=== PATIENT | male | born 1985 | race Hispanic/Latino ===

== ENCOUNTER 2019-12-20 23:23 | Emergency (ER) | payer SELFPAY ==
[2019-12-21] MEDS ORDERED: MORPHINE 4 MG/ML SYR ONE (00:17)
--- NOTE | 2019-12-21 01:54 | ER ---
Nurse's Notes [facility] Name: Sunday Ahn Age: 34 yrs Sex: Male : 1985 Arrival Date: 12/20/2019 Time: 23:25 Bed 6 Private MD: Diagnosis: Right Acromioclavicular Joint Seperation Presentation: 12/19 23:37 Chief complaint: Patient states: Pt reports he was driving home from out of town and ea fell at a gas station and landed on his right shoulder. Pt reports it happened about two hours ago and it feels like his shoulder is out of place. Pt reports taking 1 gram of Tylenol. Coronavirus screen: At this time, the client does not indicate any symptoms associated with coronavirus-19. Ebola Screen: No symptoms or risks identified at this time. Initial Sepsis Screen: Does the patient meet any 2 criteria?. Risk Assessment: Do you want to hurt yourself or someone else? Patient reports no desire to harm self or others. Onset of symptoms was December 20, 2019. 23:37 Method Of Arrival: Ambulatory ea 23:37 Acuity: [place] 3 ea 23:43 Initial Sepsis Screen: Does the patient have a suspected source of infection? No. ea Patient's initial sepsis screen is negative. Historical: - Allergies: 23:44 No Known Allergies; ea - Home Meds: 23:44 None [Active]; ea - PMHx: 23:44 None; ea - PSHx: 23:44 None; ea - Immunization history:: Adult Immunizations up to date. - Social history:: Smoking status: Patient reports the use of cigarette tobacco products, denies chronic smoking, but will smoke occasionally, Patient uses alcohol, occasionally. Screenin:38 Abuse screen: Denies threats or abuse. Nutritional screening: No deficits noted. ea Tuberculosis screening: No symptoms or risk factors identified. Fall Risk None identified. Assessment: 23:44 General: Appears uncomfortable, Behavior is appropriate for age. Pain: Complains of ea pain in anterior aspect of right shoulder and posterior aspect of right shoulder. Neuro: Level of Consciousness is awake, alert, obeys commands, Oriented to person, place, time, situation. Cardiovascular: Patient's skin is warm and dry. Respiratory: Airway is patent Respiratory effort is even, unlabored, Respiratory pattern is regular, symmetrical. Derm: Skin is pink, warm \T\ dry. Musculoskeletal: Range of motion: limited in right shoulder Reports pain in right shoulder. 12/20 00:55 Reassessment: Patient and/or family updated on plan of care and expected duration. Pain ea level reassessed. Patient is alert, oriented x 3, equal unlabored respirations, skin warm/dry/pink. 02:00 Reassessment: Patient and/or family updated on plan of care and expected duration. Pain ea level reassessed. Patient is alert, oriented x 3, equal unlabored respirations, skin warm/dry/pink. Discharge instruction given to patient, verbalized the understanding of instruction. Pt left ED ambulatory tolerating well. 02:02 Reassessment: Patient and/or family updated on plan of care and expected duration. Pain ea level reassessed. Patient is alert, oriented x 3, equal unlabored respirations, skin warm/dry/pink. Discharge instruction given to patient, verbalized the understanding of instruction. Pt left ED ambulatory accompanied by family. Vital Signs: 12/19 23:43 BP 137 / 95; Pulse 74; Resp 18; Temp 99.1; Pulse Ox 98% ; Weight 65.77 kg; Height 5 ft. ea 7 in. (170.18 cm); Pain 8/10; 12/20 01:29 BP 128 / 87; Pulse 70; Resp 18; Pulse Ox 98% on R/A; ea 12/19 23:43 Body Mass Index 22.71 (65.77 kg, 170.18 cm) ea ED Course: 12/19 23:25 Patient arrived in ED. am2 23:38 Triage completed. ea 23:39 Malorie Ga, RN is Primary Nurse. ea 23:43 Arm band placed on right wrist. Patient placed in an exam room, on a stretcher, on ea pulse oximetry. 23:44 Patient has correct armband on for positive identification. Bed in low position. Call ea light in reach. Side rails up X2. 23:46 Matthew Tavarez MD is Attending Physician. mh7 12/20 00:02 XRAY Shoulder RIGHT 2 view In Process Unspecified. EDMS 01:06 No provider procedures requiring assistance completed. ea 01:30 Patient did not have IV access during this emergency room visit. ea 01:53 Gomez Palmer MD is Referral Physician. sadie Administered Medications: 00:09 Drug: morphine 4 mg {Note: RASS 1.} Route: IM; Site: left deltoid; ea 01:07 Follow up: Response: No adverse reaction; Marked relief of symptoms; RASS: Alert and mg2 Calm (0) 01:29 Follow up: Response: No adverse reaction; Pain is decreased; RASS: Alert and Calm (0) cristina Outcome: 01:54 Discharge ordered by . sadie 02:01 Discharged to home ambulatory, with family. cristina 02:01 Condition: stable 02:01 Discharge instructions given to patient, Instructed on discharge instructions, follow up and referral plans. medication usage, Demonstrated understanding of instructions, follow-up care, medications, Prescriptions given X 1. 02:03 Patient left the ED. ea Signatures: Dispatcher [employer] EDMS Magaly Dawson am2 Malorie Ga RN Víctor Sawyer ea, RN RN mg2 Holmes, Maurice, MD MD 7 Corrections: (The following items were deleted from the chart) 12/19 23:47 23:37 Chief complaint: Patient states: Pt reports he was driving home from out of town ea and fell at a gas station and landed on his right shoulder. Pt reports it happened about two hours ago and it feels like his shoulder is out of place. cristina
--- NOTE | 2019-12-21 01:54 | EDPHYS ---
Physician Documentation [facility] Name: Sunday Ahn Age: 34 yrs Sex: Male : 1985 Arrival Date: 12/20/2019 Time: 23:25 Bed 6 Private MD: ED Physician Matthew Tavarez HPI: 12/20 01:33 This 34 yrs old Male presents to ER via Ambulatory with complaints of Fall mh7 Injury, Shoulder Injury. 01:33 Details of fall: The patient fell from an upright position, while walking. Onset: The mh7 symptoms/episode began/occurred today. Associated injuries: The patient sustained right shoulder, painful injury. Severity of symptoms: At their worst the symptoms were moderate, earlier today, in the emergency department the symptoms are unchanged. Historical: - Allergies: 12/19 23:44 No Known Allergies; ea - Home Meds: 23:44 None [Active]; ea - PMHx: 23:44 None; ea - PSHx: 23:44 None; ea - Immunization history:: Adult Immunizations up to date. - Social history:: Smoking status: Patient reports the use of cigarette tobacco products, denies chronic smoking, but will smoke occasionally, Patient uses alcohol, occasionally. ROS: 12/20 01:33 Constitutional: Negative for fever, chills, and weight loss, Eyes: Negative for injury, mh7 pain, redness, and discharge, ENT: Negative for injury, pain, and discharge, Neck: Negative for injury, pain, and swelling, Cardiovascular: Negative for chest pain, palpitations, and edema, Respiratory: Negative for shortness of breath, cough, wheezing, and pleuritic chest pain, Abdomen/GI: Negative for abdominal pain, nausea, vomiting, diarrhea, and constipation, Back: Negative for injury and pain, : Negative for injury, bleeding, discharge, and swelling, Skin: Negative for injury, rash, and discoloration, Neuro: Negative for headache, weakness, numbness, tingling, and seizure, Psych: Negative for depression, anxiety, suicide ideation, homicidal ideation, and hallucinations, Allergy/Immunology: Negative for hives, rash, and allergies, Endocrine: Negative for neck swelling, polydipsia, polyuria, polyphagia, and marked weight changes, Hematologic/Lymphatic: Negative for swollen nodes, abnormal bleeding, and unusual bruising. Exam: 01:33 Constitutional: The patient appears in no acute distress, alert, awake. mh7 01:50 Head/Face: Normocephalic, atraumatic. Eyes: Pupils equal round and reactive to light, mh7 extra-ocular motions intact. Lids and lashes normal. Conjunctiva and sclera are non-icteric and not injected. Cornea within normal limits. Periorbital areas with no swelling, redness, or edema. ENT: Nares patent. No nasal discharge, no septal abnormalities noted. Tympanic membranes are normal and external auditory canals are clear. Oropharynx with no redness, swelling, or masses, exudates, or evidence of obstruction, uvula midline. Mucous membranes moist. Neck: Trachea midline, no thyromegaly or masses palpated, and no cervical lymphadenopathy. Supple, full range of motion without nuchal rigidity, or vertebral point tenderness. No Meningismus. Chest/axilla: Normal chest wall appearance and motion. Nontender with no deformity. No lesions are appreciated. Cardiovascular: Regular rate and rhythm with a normal S1 and S2. No gallops, murmurs, or rubs. Normal PMI, no JVD. No pulse deficits. Respiratory: Lungs have equal breath sounds bilaterally, clear to auscultation and percussion. No rales, rhonchi or wheezes noted. No increased work of breathing, no retractions or nasal flaring. Abdomen/GI: Soft, non-tender, with normal bowel sounds. No distension or tympany. No guarding or rebound. No evidence of tenderness throughout. Back: No spinal tenderness. No costovertebral tenderness. Full range of motion. Skin: Warm, dry with normal turgor. Normal color with no rashes, no lesions, and no evidence of cellulitis. 01:50 Neuro: Awake and alert, GCS 15, oriented to person, place, time, and situation. Cranial nerves II-XII grossly intact. Motor strength 5/5 in all extremities. Sensory grossly intact. Cerebellar exam normal. Normal gait. Psych: Awake, alert, with orientation to person, place and time. Behavior, mood, and affect are within normal limits. 01:50 Musculoskeletal/extremity: Extremities: noted in the right shoulder: pain, swelling, tenderness, ROM: limited active range of motion, in the right shoulder, limited passive range of motion, in the right shoulder, limited active range of motion due to pain, Circulation is intact in all extremities. Pulses: are normal with no appreciated deficits, Perfusion: the patient is normally perfused throughout, Perfusion: the extremity is normally perfused throughout, Sensation intact. Compartment Syndrome exam of affected extremity: is normal. no numbness, no tingling, no sensation deficit, no palor, no weak pulses, Joints: the right shoulder displays pain at rest, painful range of motion, swelling, tenderness, Weight bearing: able to fully bear weight, without difficulty, Tendon exam: specific tendon testing normal through active and passive range of motion Vital Signs: 12/19 23:43 BP 137 / 95; Pulse 74; Resp 18; Temp 99.1; Pulse Ox 98% ; Weight 65.77 kg; Height 5 ft. ea 7 in. (170.18 cm); Pain 8/10; 12/20 01:29 BP 128 / 87; Pulse 70; Resp 18; Pulse Ox 98% on R/A; ea 12/19 23:43 Body Mass Index 22.71 (65.77 kg, 170.18 cm) ea MDM: 00:04 Patient medically screened. [facility] 01:50 Differential diagnosis: abrasion, contusion, fracture, sprain, strain. Data reviewed: [facility] vital signs, nurses notes, radiologic studies, plain films. Data interpreted: Pulse oximetry: on room air is 98 %. Interpretation: normal. Counseling: I had a detailed discussion with the patient and/or guardian regarding: the historical points, exam findings, and any diagnostic results supporting the discharge/admit diagnosis, radiology results, the need for outpatient follow up, a orthopedic surgeon, to return to the emergency department if symptoms worsen or persist or if there are any questions or concerns that arise at home. Response to treatment: the patient's symptoms have markedly improved after treatment. 12/19 23:40 Order name: XRAY Shoulder RIGHT 2 view ea 12/20 01:07 Order name: Sling; Complete Time: :29 ea Administered Medications: 00:09 Drug: morphine 4 mg {Note: RASS 1.} Route: IM; Site: left deltoid; ea 01:07 Follow up: Response: No adverse reaction; Marked relief of symptoms; RASS: Alert and mg2 Calm (0) 01:29 Follow up: Response: No adverse reaction; Pain is decreased; RASS: Alert and Calm (0) ea Disposition: 12/21/19 01:54 Discharged to Home. Impression: Right Acromioclavicular Joint Seperation. - Condition is Stable. - Discharge Instructions: Shoulder Separation. - Prescriptions for Tylenol- Codeine #3 300-30 mg Oral Tablet - take 2 tablet by ORAL route every 6 hours As needed; 30 tablet. - Medication Reconciliation Form, Thank You Letter, Antibiotic Education, Prescription Opioid Use form. - Follow up: Gomez Palmer MD; When: 1 - 2 days; Reason: Worsening of condition, Recheck today's complaints. - Problem is new. - Symptoms have improved. Signatures: Dispatcher [employer] EDMalorie Hidalgo RN RN ea Holmes, Maurice, MD MD mh7 Víctor Wynn RN mg2 Corrections: (The following items were deleted from the chart) 02:03 01:54 12/21/2019 01:54 Discharged to Home. Impression: Right Acromioclavicular Joint ea Seperation. Condition is Stable. Forms are Medication Reconciliation Form, Thank You Letter, Antibiotic Education, Prescription Opioid Use. Follow up: Dr. Gomez Palmer; When: 1 - 2 days; Reason: Worsening of condition, Recheck today's complaints. Problem is new. Symptoms have improved. mh7
[2019-12-21 02:09] VITALS: TEMP 99.1; O2SAT 98
[2019-12-21 02:10] VITALS: BP 128/87
--- NOTE | 2019-12-21 09:45 | RAD REPORT ---
EXAM DESCRIPTION: Shoulder Right 2 View - 12/21/2019 12:00 am CLINICAL HISTORY: Pain and deformity. COMPARISON: None. TECHNIQUE: Internal and external rotation views of the right shoulder. FINDINGS: No proximal right humerus fracture. No shi dislocation. Normal bone mineralization. There is complete superior elevation of the distal clavicle relative to the distal acromion compatibl e with grade III separation. There is adjacent soft tissue edema and deformity. The right clavicle is otherwise intact. Intact scapula. Unremarkable included right ribs and lung. IMPRESSION: Right grade III acromioclavicular separation. Electronically signed by: Martha Cueto DO 12/21/2019 12:36 AM CDT Due to temporary technical issues with the PACS/Fluency reporting system, reports are being signed by the in house radiologist without review as a courtesy to ensure prompt reporting. The interpreting r adiologist is fully responsible for the content of the report.
== END 2019-12-21 02:03 | disposition home or self-care (01) ==
LOC: ER 23:23
DX: S43.101A Unspecified dislocation of right acromioclavicular joint, initial encounter (principal); W19.XXXA Unspecified fall, initial encounter; Y93.01 Activity, walking, marching and hiking; Y92.9 Unspecified place or not applicable; F17.210 Nicotine dependence, cigarettes, uncomplicated
CPT/HCPCS: 96372; 99284